=== PATIENT | female | born 1955 | race African-American/Black ===

== ENCOUNTER 2016-09-01 10:11 | Emergency (ER) | payer MEDICAID ==
[~2016-09-01] VITALS: Ht 170.2 cm; Wt 54.0 kg
[2016-09-01] MEDS ORDERED: KETOROLAC 30MG/ML VIAL IV STA (10:40)
[2016-09-01] MEDS ORDERED: SODIUM CHLORIDE 0.9% 1,000 ML IV ONE (10:40)
[2016-09-01] MEDS ORDERED: TETANUS, DIPHTHERIA, PERTUSSIS VAC/PF 0.5ML (>7YR OLD) IM ONE (10:45)
[2016-09-01 11:08] LABS: HEMATOCRIT 35.5 % (36.0-48.0); MEAN CORPUSCULAR HEMOGLOBIN 30.9 pg (28.0-32.0); MEAN CORPUSCULAR VOLUME 91.4 fL (81.0-99.0); PLATELET 205 x1000/uL (130-400); RED BLOOD CELL COUNT 3.88 mill/uL (4.2-5.4); RED CELL DISTRIBUTION WIDTH 13.3 % (11.6-14.6)
[2016-09-01 11:16] LABS: INR 1.1; PARTIAL THROMBOPLASTIN TIME 25.8 sec (24.0-34.0); PROTHROMBIN TIME 11.3 sec
[2016-09-01 11:19] LABS: CHLORIDE 106 mEq/L (98-107)
[2016-09-01 11:25] LABS: CARBON DIOXIDE 33 mEq/L (21-32); ETHANOL BLOOD < 10 mg/dL
[2016-09-01] MEDS ORDERED: MANNITOL 12.5G (25%) VIAL 50ML IV ONE (12:30)
[2016-09-01] MEDS ORDERED: PHENYTOIN SODIUM 500 MG in SODIUM CHLORIDE 0.9% 50 ML IV ONE (12:30)
[2016-09-01 12:47] LABS: INR 1.1; PARTIAL THROMBOPLASTIN TIME 25.5 sec (24.0-34.0); PROTHROMBIN TIME 11.1 sec
[2016-09-01 12:50] LABS: CARBON DIOXIDE 29 mEq/L (21-32); CHLORIDE 107 mEq/L (98-107)
[2016-09-01] MEDS: CEFAZOLIN 1000MG PREMIX 50 ML IV NR ×2 (12:56→13:02)
[2016-09-01] MEDS: SODIUM CHLORIDE 0.9% 1,000 ML IV NR ×2 (13:11→13:49)
[2016-09-01 13:38] LABS: CLARITY URINE CLEAR (CLEAR); COLOR URINE YELLOW (YELLOW); GLUCOSE URINE NEGATIVE (NEGATIVE); KETONES URINE NEGATIVE (NEGATIVE); LEUKOCYTE ESTERASE URINE NEGATIVE (NEGATIVE); NITRITE URINE NEGATIVE (NEGATIVE); OCCULT BLOOD URINE NEGATIVE (NEGATIVE); PH URINE 7.5 (4.5-8.0); PROTEIN URINE NEGATIVE (NEGATIVE); SPECIFIC GRAVITY URINE 1.011 (1.005-1.030); UROBILINOGEN URINE 0.2 E.U./dL (0.2-1.0)
[2016-09-01] MEDS ORDERED: DEXTROSE 50% WATER 50ML SYRINGE IV ONE (13:45)
[2016-09-01] MEDS ORDERED: MORPHINE SULFATE 2 MG/ML CPJ (NOT FOR IM USE) IV ONE (14:30)
[2016-09-01] MEDS ORDERED: ONDANSETRON HCL 4MG/2ML VIAL IV ONE (14:30)
[2016-09-01 17:19] VITALS: BP 137/77
== END 2016-09-01 18:18 | disposition short-term general hospital (02) ==
LOC: ER 10:11
DX: S06.5X0A Traumatic subdural hemorrhage without loss of consciousness, initial encounter (principal); Y04.2XXA Assault by strike against or bumped into by another person, initial encounter; Y93.89 Activity, other specified; Y92.89 Other specified places as the place of occurrence of the external cause; Y99.8 Other external cause status
CPT/HCPCS: 36415; 70450; 70486; 80053; 81003; 81025; 82962; 85027; 85610; 85730; 86850; 86900; 86901; 90471; 90715; 96365; 96368; 96375; 99285; G0482; J0690; J1165; J1885; J2150; J2270; J2405; J7030; Z7610